=== PATIENT | male | born 1940 | race Caucasian/White ===

== ENCOUNTER 2017-04-20 00:20 | Observation (INO) ==
[2017-04-20 00:43] LABS: Basophils % 0.6 %; Eosinophils # 0.1 K/mcL (0.0-0.6); Eosinophils % 1.9 %; Hematocrit 39.3 % (37.5-50.1); Hemoglobin 13.2 g/dL (12.9-16.9); Immature Granulocytes % 0.4 % (0-4); Lymphocytes # 1.6 K/mcL (0.6-4.6); Lymphocytes % 30.4 %; Mean Corpuscular HGB Conc 33.6 g/dL (31.6-35.5); Mean Corpuscular Hemoglobin 30.6 pg (28.0-33.3); Monocytes # 0.4 K/mcL (0.0-1.3); Monocytes % 7.6 %; Platelet Count 180 K/mcL (140-400); Red Blood Count 4.32 M/mcL (4.19-5.50); Red Cell Distribution Width 13.2 % (11.5-14.5); Segmented Neutrophils % 59.1 %
[2017-04-20 00:48] LABS: INR 1.1; Prothrombin Time 12.2 Seconds (9.4-12.1)
[2017-04-20 00:51] LABS: Activated Partial Thrombo Time 30.3 Seconds (26.0-36.0)
[2017-04-20 00:54] LABS: BUN/Creatinine Ratio 28 (6-26); Blood Urea Nitrogen 25 mg/dL (8-26); Calcium 8.6 mg/dL (8.6-10.8); Carbon Dioxide 23 mEq/L (19-29); Chloride 109 mEq/L (98-109); Glucose 92 mg/dL (70-99); Osmolality,Calculated 294 (280-300); Potassium 3.9 mEq/L (3.5-4.5); Sodium 140 mEq/L (136-145); eGFR For African Americans > 60 (> 60); eGFR For Non-African Americans > 60 (> 60)
--- NOTE | 2017-04-20 01:14 | Emergency Department Note ---
Disposition Clinical Impression: Chest pain Qualifiers: Chest pain type: unspecified Qualified Code(s): R07.9 - Chest pain, unspecified Disposition: Admitted As Inpatient Condition: Good Time of Disposition: 02:14 Chest Pain HPI - General Chief Complaint: ED Chest Pain Stated Complaint: Chest Pain Time Seen by Provider: 04/20/17 00:43 Source: patient, EMS Mode of arrival: EMS Limitations: no limitations Vital Signs Reviewed: Yes Nursing Notes Reviewed: Yes - History of Present Illness HPI Narrative: 76-year-old male history of hyperlipidemia and former smoker presents to the ED via EMS for chest pain. Around 2300 he awoke from sleep left-sided chest pain radiation up the left arm left jaw and right shoulder. Reports shortness of breath denies any diaphoresis nausea or vomiting. Describes the pain as a heaviness and discomfort. Symptoms resolved after receiving 4 baby aspirin's in one subliminal nitro given at 0009. Patient reports relief of symptoms here on arrival. Denies any history of cardiac ischemic disease. He does have a pacemaker that he follows with a special education teachers at [facility]. Recent appointment 2 weeks ago for battery check. Denies any history of blood clots. Denies any recent illness, fever, cough, abdominal pain. Does report his recently had a hip replacement and he has been exerting himself more frequently. States about 2 years ago he had a heart catheterization that was reportedly normal. Chest pain workup initiated. Patient will likely need admission. Severity scale (1-10): 0 - Related Data Home Medications Medication Instructions Recorded Confirmed Aspirin 81 mg PO DAILY 01/23/16 04/20/17 Lovastatin 40 mg PO BID 01/23/16 04/20/17 Methocarbamol [Robaxin] 750 mg PO BID 01/23/16 04/20/17 Naproxen [Naprosyn] 500 mg PO BID 01/23/16 04/20/17 traMADol [Ultram] 50 mg PO BID PRN 01/23/16 04/20/17 Ascorbate Calcium [Vitamin C] 500 mg PO Q48H 07/13/16 04/20/17 Ferrous Sulfate [Iron] 325 mg PO Q48H 07/13/16 04/20/17 Multivit-Min/FA/Lycopen/Lutein 1 each PO DAILY 08/17/16 04/20/17 [Centrum Silver Men Tablet] Esomeprazole Magnesium [Nexium] 40 mg PO DAILY 04/20/17 04/20/17 Oxybutynin Chloride [Ditropan Xl] 2.5 mg PO BID 04/20/17 04/20/17 Ranitidine HCl [Acid Manager Operational] 150 mg PO BID 04/20/17 04/20/17 Allergies Allergy/AdvReac Type Severity Reaction Status Date / Time codeine Allergy Anaphylaxis Verified 04/20/17 00:39 Chest Pain PMH - Past Medical History Medical history: Reports: arthritis, GERD Surgical history: Reports: appendectomy, cholecystectomy, pacemaker/AICD Psychiatric history: Reports: no psych history - Social History Smoking Status: Former smoker Alcohol use: Reports: occasionally Drug use: Reports: none Physical Exam - General Limitations: no limitations General appearance: alert, in no apparent distress - Head Head exam: atraumatic, normocephalic, normal inspection - Eye Eye exam: Present: normal appearance, PERRL, EOMI - ENT ENT exam: normal exam, normal oropharynx, mucous membranes moist - Neck Neck exam: Present: normal inspection, full ROM, trachea midline - Chest Chest inspection: Present: normal inspection, symmetric chest wall rise, other ( PACEMAKER LEFT CHEST WALL). Absent: tenderness - Respiratory Respiratory exam: Present: normal lung sounds bilaterally. Absent: respiratory distress, wheezes, stridor - Cardiovascular Cardiovascular exam: Present: regular rate, normal rhythm, normal heart sounds - Abdominal Exam Abdominal exam: Present: soft, Non-Tender, normal bowel sounds. Absent: tenderness, distention, guarding, rebound, rigidity - Extremities Exam Extremities exam: Present: normal inspection, full ROM, normal capillary refill. Absent: tenderness, pedal edema, calf tenderness - Back Exam Back exam: Present: normal inspection, full ROM. Absent: tenderness - Neurological Exam Neurological exam: Present: alert, oriented X3 - Psychiatric Psychiatric exam: Present: normal affect, normal mood - Skin Skin exam: Present: warm, dry, intact, normal color Course - Reevaluation(s) Reevaluation #1: Review of his labs, troponin 0.01 the rest of his labs are otherwise unremarkable. Due to symptom presentation patient would benefit from admission for chest pain workup to evaluate for ACS. Patient and family are in agreement with this plan. He remains chest pain free at this time. Otherwise stable. Impression is chest pain rule out acute coronary syndrome. Time: 02:00 - Consultations Consultation #1: Spoke with on-call hospitalist oly Lazo to admit for chest pain R/O ACS. No further orders at this time Time: 02:12 Vital Signs Temperature 96.9 F L 04/20/17 00:22 Pulse Rate 77 04/20/17 00:22 Respiratory Rate 18 04/20/17 00:22 Blood Pressure 144/107 04/20/17 00:22 O2 Sat by Pulse Oximetry 93 04/20/17 00:22 Temperature 96.9 F L 04/20/17 00:22 Pulse Rate 68 04/20/17 01:23 Respiratory Rate 16 04/20/17 02:57 Blood Pressure 128/79 04/20/17 02:57 O2 Sat by Pulse Oximetry 95 04/20/17 01:23 Oxygen Delivery Oxygen Delivery Room Air Chest Pain - Medical Records Medical records reviewed: Yes I reviewed the patient's medical records. - Lab Data Lab results reviewed: Yes I reviewed the patient's lab results. Result diagrams: 04/20/17 00:38 04/20/17 00:38 Lab Results 04/20/17 04/20/17 04/20/17 Range/Units 00:38 00:38 00:38 WBC 5.1 (4.3-11.1) K/mcL RBC 4.32 (4.19-5.50) M/mcL Hgb 13.2 (12.9-16.9) g/dL Hct 39.3 (37.5-50.1) % MCV 91.0 (83.0-100.0) fL MCH 30.6 (28.0-33.3) pg MCHC 33.6 (31.6-35.5) g/dL RDW 13.2 (11.5-14.5) % Plt Count 180 (140-400) K/mcL MPV 9.0 L (9.4-12.4) fL Immature Gran % 0.4 (0-4) % Seg Neutrophils % 59.1 % Lymphocytes % 30.4 % Monocytes % 7.6 % Eosinophils % 1.9 % Basophils % 0.6 % Neutrophils # 3.0 (1.6-8.9) K/mcL Lymphocytes # 1.6 (0.6-4.6) K/mcL Monocytes # 0.4 (0.0-1.3) K/mcL Eosinophils # 0.1 (0.0-0.6) K/mcL Basophils # 0.0 (0.0-0.2) K/mcL PT 12.2 H (9.4-12.1) Seconds INR 1.1 APTT 30.3 (26.0-36.0) Seconds Sodium 140 (136-145) mEq/L Potassium 3.9 (3.5-4.5) mEq/L Chloride 109 (98-109) mEq/L Carbon Dioxide 23 (19-29) mEq/L BUN 25 (8-26) mg/dL Creatinine 0.88 (0.72-1.25) mg/dL Est GFR ( Amer) > 60 (> 60) Est GFR (Non-Af Amer) > 60 (> 60) BUN/Creatinine Ratio 28 H (6-26) Glucose 92 (70-99) mg/dL Calculated Osmolality 294 (280-300) Calcium 8.6 (8.6-10.8) mg/dL Troponin I (0-0.03) ng/mL 04/20/17 Range/Units 00:38 WBC (4.3-11.1) K/mcL RBC (4.19-5.50) M/mcL Hgb (12.9-16.9) g/dL Hct (37.5-50.1) % MCV (83.0-100.0) fL MCH (28.0-33.3) pg MCHC (31.6-35.5) g/dL RDW (11.5-14.5) % Plt Count (140-400) K/mcL MPV (9.4-12.4) fL Immature Gran % (0-4) % Seg Neutrophils % % Lymphocytes % % Monocytes % % Eosinophils % % Basophils % % Neutrophils # (1.6-8.9) K/mcL Lymphocytes # (0.6-4.6) K/mcL Monocytes # (0.0-1.3) K/mcL Eosinophils # (0.0-0.6) K/mcL Basophils # (0.0-0.2) K/mcL PT (9.4-12.1) Seconds INR APTT (26.0-36.0) Seconds Sodium (136-145) mEq/L Potassium (3.5-4.5) mEq/L Chloride (98-109) mEq/L Carbon Dioxide (19-29) mEq/L BUN (8-26) mg/dL Creatinine (0.72-1.25) mg/dL Est GFR ( Amer) (> 60) Est GFR (Non-Af Amer) (> 60) BUN/Creatinine Ratio (6-26) Glucose (70-99) mg/dL Calculated Osmolality (280-300) Calcium (8.6-10.8) mg/dL Troponin I 0.01 (0-0.03) ng/mL - Radiology Data Radiology results reviewed: Yes I reviewed the patient's radiology results. Chest X-Ray 04/20/17 00:35 IMPRESSION: No acute process. D/ / Julia Ruff MD / Julia Ruff MD Interpreting Provider: Julia Ruff MD - EKG Data EKG attestation: Yes I reviewed and interpreted this EKG. EKG results narrative: EKG performed 002 for electronic atrial paced rhythm, 80 bpm UT interval to 28, no significant ST elevations or depression. There is no old EKG for comparison. No acute ischemic changes consistent with STEMI. Heart Score - Score History: Moderately Suspicious EKG: Non Specific repolarisation Disturbance Age: Greater than 65 Risk Factors: 1-2 risk factors Troponin: Less than normal limit HEART Score Total: 5 Attestation Statement - Attestation Attestation: I, Sudheer Marrero, examined this patient and my medical decision-making was reviewed with the GASTROENTEROLOGY TECHNICIAN/PA/Advanced Practice Nurse/Resident Physician. I agree with the documented findings, disposition and treatment plan as described except to the extent set forth below. 76-year-old male presents emergency department after acute onset pain. Patient states pain woke him from sleep, was a heaviness radiating to his left jaw and left upper extremity. Pain resolved after administration of aspirin and nitroglycerin by EMS. Patient is pain-free in the emergency department. Last stress test was 2 years ago, last cardiac catheterization was greater than 5 years ago. Patient has a pacemaker in situ. Initial troponin negative. EKG showed atrial paced with a rate of 80 without evidence of STEMI. Patient comfortable with the plan for admission to hospital for further care and evaluation.
[2017-04-20] MEDS ORDERED: Acetaminophen 325 MG TABLET PO PRN (03:38)
[2017-04-20] MEDS ORDERED: Naloxone 0.4 MG/ML INJ IVP PRN (03:38)
[2017-04-20] MEDS ORDERED: Nitroglycerin 0.4 MG TAB.SUBL SL PRN (03:41)
[2017-04-20] MEDS ORDERED: traMADol 50 MG TABLET PO PRN (03:44)
[2017-04-20 04:35] LABS: Basophils % 0.6 %; Eosinophils # 0.1 K/mcL (0.0-0.6); Eosinophils % 1.8 %; Hematocrit 38.8 % (37.5-50.1); Lymphocytes # 1.5 K/mcL (0.6-4.6); Lymphocytes % 29.4 %; Mean Corpuscular HGB Conc 33.5 g/dL (31.6-35.5); Mean Corpuscular Hemoglobin 30.6 pg (28.0-33.3); Mean Corpuscular Volume 91.3 fL (83.0-100.0); Mean Platelet Volume 9.4 fL (9.4-12.4); Monocytes # 0.4 K/mcL (0.0-1.3); Monocytes % 7.6 %; Platelet Count 158 K/mcL (140-400); Red Blood Count 4.25 M/mcL (4.19-5.50); Red Cell Distribution Width 13.4 % (11.5-14.5); Segmented Neutrophils % 60.6 %
--- NOTE | 2017-04-20 04:35 | Internal Med History&Physical ---
Date of Encounter: 04/20/17 Time of Encounter: 02:00 Assessment and Plan (1) DVT prophylaxis Current visit: Yes Status: Acute heparin sc (2) Chest pain Current visit: Yes Status: Acute Pt has typical chest pain, respond to NTG, need to r/o ACS. - Continuous cardiac monitoring - Track 3 sets of troponin. - Stress test in AM if pt remains pain free and at least two sets of troponin negative. - Echo - NTG SL PRN - Cont home med ASA and statin Qualifiers: Chest pain type: precordial pain Qualified Code(s): R07.2 - Precordial pain Internal Medicine - H&P: HPI Chief complaint: Chest pain Admitted From: Home Plans for Post Hospital Care: Home History of present illness: Mr. Gonzalez is a 76 year old male with hx of S/P PPM with clear reason present to ER for chest pain. Pain started at 10-11pm and waked pt up from sleep. Chest pain located on mid chest and radiated to his left arm and neck. Pain is pressure like and throbbing. Pt has SOB, likes pale and shaking. He denies nausea, vomiting or diaphoresis. Pain lasted 20 min and resoled by itself. When EMS come, pt had another episode of chest pain on ambulance, lasted about 5 min and resolve by SL NTG. When I saw pt in ER, pt is pain free. Pt was admitted to r/o ACS. Past Med Surg Social Fam HX - Past Medical History Medical history: arthritis, GERD Psychiatric history: no psych history - Past Surgical History Surgical History: appendectomy, cholecystectomy, pacemaker/AICD - Social History Smoking Status: Former smoker Smokeless Tobacco Status: No Alcohol use: occasionally Drug use: none - Family History Mother History Unknown: Yes Internal Medicine - H&P: Meds Aspirin 81 mg PO DAILY 01/23/16 [History] Lovastatin 40 mg PO BID 01/23/16 [History] Methocarbamol [Robaxin] 750 mg PO BID 01/23/16 [History] Naproxen [Naprosyn] 500 mg PO BID 01/23/16 [History] traMADol [Ultram] 50 mg PO BID PRN 01/23/16 [History] Ascorbate Calcium [Vitamin C] 500 mg PO Q48H 07/13/16 [History] Ferrous Sulfate [Iron] 325 mg PO Q48H 07/13/16 [History] Multivit-Min/FA/Lycopen/Lutein [Centrum Silver Men Tablet] 1 each PO DAILY 08/17 [History] Esomeprazole Magnesium [Nexium] 40 mg PO DAILY 04/20/17 [History] Oxybutynin Chloride [Ditropan Xl] 2.5 mg PO BID 04/20/17 [History] Ranitidine HCl [Acid Building Repair Maintenance Supervisor] 150 mg PO BID 04/20/17 [History] 3 Allergy/AdvReac Type Severity Reaction Status Date / Time codeine Allergy Anaphylaxis Verified 04/20/17 00:39 All Systems PM: A 10-system review of systems was performed and is negative for pertinent findings except as documented above in the HPI. - Constitutional Vitals: Temp Pulse Resp BP Pulse Ox 97.9 F 61 15 130/79 94 04/20/17 04:10 04/20/17 04:10 04/20/17 04:10 04/20/17 04:10 04/20/17 04:10 General appearance: Present: A&O X 3, no acute distress, answers questions appropriately - Head Head exam: Present: atraumatic, normocephalic - Eye Eye exam: Present: PERRL, conjuntiva pink, sclera anicteric Pupils: Present: PERRL - Neck Neck exam general surgery: Present: supple, trachea midline. Absent: lymphadenopathy - Respiratory Respiratory exam: Present: CTAB. Absent: accessory muscle use, rales, rhonchi, wheezes - Cardiovascular Cardiovascular exam: Present: RRR, +S1, +S2. Absent: diastolic murmur, gallop, rubs, systolic murmur - GI/Abdominal GI/Abdominal exam: Present: normal bowel sounds, soft, no peritoneal signs. Absent: distended, tenderness - Extremities Exam Extremities exam: Present: warm, radial pulses palpable and symmetrical. Absent : calf tenderness, cyanotic, pedal edema - Neurological Exam Neurological exam: Present: CN II-XII intact, oriented X3, no focal deficits. Absent: pronater drift, facial droop, speech deficit - Skin Skin exam: Present: dry, intact Internal Med - H&P Results - Labs CBC & Chem 7: 04/20/17 00:38 04/20/17 00:38 - EKG Data -: EKG Interpreted by Myself (Pacing rhythm, no significant ST-T changes)
[2017-04-20 04:39] LABS: BUN/Creatinine Ratio 26 (6-26); Blood Urea Nitrogen 23 mg/dL (8-26); Calcium 9.1 mg/dL (8.6-10.8); Carbon Dioxide 28 mEq/L (19-29); Chloride 107 mEq/L (98-109); Glucose 99 mg/dL (70-99); Osmolality,Calculated 294 (280-300); Potassium 3.9 mEq/L (3.5-4.5); Sodium 140 mEq/L (136-145); eGFR For African Americans > 60 (> 60); eGFR For Non-African Americans > 60 (> 60)
[2017-04-20] MEDS ORDERED: Regadenoson 0.4 MG/5 ML SYRINGE IVP ONE (05:49)
[2017-04-20] MEDS: *HR* Heparin 5,000 UNIT/ML VIAL SQ SCH ×2 (09:00→17:24)
[2017-04-20] MEDS ORDERED: Famotidine 20 MG TABLET PO SCH (09:00)
[2017-04-20] MEDS ORDERED: Aspirin 81 MG TAB.CHEW PO SCH (09:00)
[2017-04-20] MEDS ORDERED: Methocarbamol 750 MG TABLET PO SCH (09:00)
[2017-04-20] MEDS ORDERED: Multivit/Ca/Min/Fe/FA 1 TAB TABLET PO SCH (09:00)
[2017-04-20 15:07] VITALS: BP 147/87
--- NOTE | 2017-04-20 17:43 | Discharge Summary ---
Date of Encounter: 04/20/17 Time of Encounter: 10:05 - Discharge Diagnosis (1) Chest pain Priority: Primary Status: Acute Comments: Patient reports sudden onset chest pain that began during the night and awakened him from sleep. Chest pain was located in the left chest radiated to left arm, and upper midline neck to the right neck and into right chest. He describes it as a pressure as well as a sharp pain. He describes it also as a heaviness. Did report shortness of breath but denies any nausea, vomiting, or diaphoresis. He was given a nitroglycerin and aspirin by EMS and by the time he reached the emergency department the pain had resolved. He states that he was unsure what made the chest pain stopped, could potentially have been the nitroglycerin. Troponin was negative 2. Patient chest x-ray negative for any acute process. Echocardiogram showed an LVEF of 55-60% with mild LV DD, normal RV structure and function, mild pulmonary regurgitation, and the device lead was visualized in right atrium and right ventricle. All wall segments showed normal motion. Patient stress test today was negative for ischemia or infarct with a gated EF of 65%. Patient denies chest pain since prior to arrival at the emergency department. Pain is not reproducible with palpation, movement, deep inspiration. Patient's lungs are clear, there is no wheezing, rhonchi, Rales, or respiratory distress. Patient is a nonsmoker. Patient is not tender to palpation in epigastric area, unclear correlation with food as patient has never had this previously. Recommend follow-up with primary care provider for continued testing, potential benefit from event monitor or Holter monitor after discharge. Recommend the patient continue his ranitidine and Prilosec. Also recommend that he takes enteric-coated aspirin daily. Perhaps do not take naproxen. Qualifiers: Chest pain type: precordial pain Qualified Code(s): R07.2 - Precordial pain (2) DVT prophylaxis Priority: Secondary Status: Acute Comments: Heparin subcutaneous daily. (3) GERD (gastroesophageal reflux disease) Priority: Secondary Status: Chronic Comments: Per patient history. Continue ranitidine as well as omeprazole. Qualifiers: Esophagitis presence: esophagitis presence not specified Qualified Code(s) : K21.9 - Gastro-esophageal reflux disease without esophagitis - Discharge Medications Home Medications: Aspirin 81 mg PO DAILY 01/23/16 [History] Lovastatin 40 mg PO BID 01/23/16 [History] Ascorbate Calcium [Vitamin C] 500 mg PO Q48H 07/13/16 [History] Ferrous Sulfate [Iron] 325 mg PO Q48H 07/13/16 [History] Multivit-Min/FA/Lycopen/Lutein [Centrum Silver Men Tablet] 1 each PO DAILY 08/17 [History] Naproxen [Naprosyn] 500 mg PO BID tablet 04/20/17 [Rx] Omeprazole [PriLOSEC] 40 mg PO DAILY 04/20/17 [History] Oxybutynin Chloride [Ditropan Xl] 2.5 mg PO BID 04/20/17 [History] Ranitidine HCl [Acid Crib Tender] 150 mg PO BID 04/20/17 [History] Tamsulosin [Flomax] 0.4 mg PO DAILY 04/20/17 [History] Allergies/Adverse Reactions: 3 Allergy/AdvReac Type Severity Reaction Status Date / Time codeine Allergy Anaphylaxis Verified 04/20/17 00:39 Procedures/tests Complete & Pending: Procedures Performed prior 72 hours Category Date Time Status NM jones perf SPECT multi [NM] Routine Exams 04/20/17 03:43 Taken EV echocardiogram Routine Y 04/20/17 03:44 Completed SP pharm nuclear stress Routine Y 04/20/17 07:20 Completed Date of admission: 04/20/17 02:28 Primary care physician: Jonathan Dsouza DO Discharging clinician: Chiquis Thorpe Anticipated date of discharge: 04/20/17 - Patient Status Disposition: Home, Self-Care Condition: Good Functional capacity at discharge: independent ambulation Overall status at discharge: patient is back to baseline - Discharge Instructions Follow Up With: Jonathan Dsouza DO [Primary Care Provider] - Additional Instructions: Please follow up with her primary care provider in the next 7-10 days for a recheck. Return to normal activities and diet as tolerated. Resume your normal home medications. Return to the emergency room as needed for any other problems or concerns, or if your symptoms return or worsen. - Diet and Activity Activity: increase activity as tolerated Diet: advance to your usual diet Interval History: Please see assessment and plan for hospital course. Hospital course: Mr. Gonzalez is a 76 year old male - Time Spent with Patient Total time spent providing and/or coordinating discharge services: - Constitutional Vitals: Temp Pulse Resp BP Pulse Ox 97.5 F L 66 18 147/87 94 04/20/17 15:06 04/20/17 15:06 04/20/17 15:06 04/20/17 15:06 04/20/17 15:06 General appearance: Present: cooperative, A&O X 3, pleasant, no acute distress, answers questions appropriately - Head Head exam: Present: atraumatic, normal inspection, normocephalic - Eye Eye exam: Present: normal appearance, conjuntiva pink, sclera anicteric - Neck Neck exam general surgery: Present: normal inspection, supple, trachea midline. Absent: lymphadenopathy, tenderness - Respiratory Respiratory exam: Present: CTAB. Absent: accessory muscle use, chest wall tenderness, decreased breath sounds, rales, respiratory distress, rhonchi, wheezes - Cardiovascular Cardiovascular exam: Present: RRR, +S1, +S2. Absent: diastolic murmur, gallop, rubs, systolic murmur - GI/Abdominal GI/Abdominal exam: Present: normal bowel sounds, soft. Absent: distended, hernia, tenderness - Extremities Exam Extremities exam: Present: normal capillary refill, normal inspection, warm, radial pulses palpable and symmetrical. Absent: calf tenderness, cyanotic, pedal edema, tenderness - Neurological Exam Neurological exam: Present: alert, oriented X3, no focal deficits. Absent: facial droop, speech deficit - Skin Skin exam: Present: dry, intact, normal color, warm. Absent: rash
--- NOTE | 2017-04-20 20:38 | Electrocardiograph Report ---
[address] [address] Test Date: 2017-04-20 Pat Name: Barrett Gonzalez Department: 104 Room: 3B54 Gender: M Carpenter Rough: KIKE : 1940 Requested By: Sudheer Marrero Order Number: [id number] Reading MD: Evan Green MD Measurements Intervals [place] Rate: 80 P: -16 IN: 228 QRS: -7 QRSD: 90 T: 20 QT: 341 QTc: 377 Interpretive Statements ELECTRONIC ATRIAL PACEMAKER Electronically Signed On 04-20-2017 20:37:07 EST by Evan Green MD
== END 2017-04-20 18:36 | disposition home or self-care (01) ==
LOC: EMEROO 00:20 → 3BNU 00:20
PROVIDERS: ADMIT Internal Medicine; ATTEND Registered Nurse

== ENCOUNTER 2019-05-19 14:39 | Observation (INO) ==
[2019-05-19] MEDS ORDERED: Aspirin 81 MG TAB.CHEW PO STA (14:47)
[2019-05-19] MEDS: Nitroglycerin 0.4 MG TAB.SUBL SL PRN ×2 (15:18→15:25)
[2019-05-19 15:30] LABS: Hematocrit 39.6 % (37.5-50.1); Hemoglobin 13.8 g/dL (12.9-16.9); Mean Corpuscular HGB Conc 34.8 g/dL (31.6-35.5); Mean Corpuscular Hemoglobin 31.7 pg (28.0-33.3); Mean Platelet Volume 9.3 fL (9.4-12.4); Platelet Count 191 K/mcL (140-400); Red Blood Count 4.35 M/mcL (4.19-5.50); Red Cell Distribution Width 13.2 % (11.5-14.5); White Blood Count 4.5 K/mcL (4.3-11.1)
[2019-05-19 15:53] LABS: BUN/Creatinine Ratio 22 (6-26); Blood Urea Nitrogen 25 mg/dL (8-23); Calcium 9.2 mg/dL (8.6-10.3); Carbon Dioxide 26 mEq/L (23-29); Chloride 107 mEq/L (98-107); Glucose 102 mg/dL (70-105); Osmolality,Calculated 295 (280-300); Potassium 4.1 mEq/L (3.5-5.1); Sodium 140 mEq/L (136-145); Troponin I < 0.03 ng/mL (< 0.04); eGFR For African Americans > 60 (> 60); eGFR For Non-African Americans > 60 (> 60)
[2019-05-19] MEDS ORDERED: Naloxone 0.4 MG/ML INJ IVP PRN (17:13)
[2019-05-19] MEDS ORDERED: Ondansetron ODT 4 MG TAB.RAPDIS SL PRN (17:13)
[2019-05-19] MEDS ORDERED: Acetaminophen 325 MG TABLET PO PRN (17:13)
[2019-05-20 03:41] LABS: Basophils % 0.6 %; Eosinophils # 0.2 K/mcL (0.0-0.6); Hematocrit 41.4 % (37.5-50.1); Hemoglobin 13.9 g/dL (12.9-16.9); Immature Granulocytes % 0.4 % (0-4); Lymphocytes # 1.4 K/mcL (0.6-4.6); Lymphocytes % 28.8 %; Mean Corpuscular HGB Conc 33.6 g/dL (31.6-35.5); Mean Corpuscular Hemoglobin 30.5 pg (28.0-33.3); Mean Platelet Volume 9.6 fL (9.4-12.4); Monocytes # 0.4 K/mcL (0.0-1.3); Monocytes % 8.1 %; Neutrophils # 2.9 K/mcL (1.6-8.9); Platelet Count 199 K/mcL (140-400); Red Blood Count 4.55 M/mcL (4.19-5.50); Red Cell Distribution Width 13.2 % (11.5-14.5); Segmented Neutrophils % 59.1 %; White Blood Count 4.9 K/mcL (4.3-11.1)
[2019-05-20 03:48] LABS: BUN/Creatinine Ratio 22 (6-26); Blood Urea Nitrogen 25 mg/dL (8-23); Calcium 9.2 mg/dL (8.6-10.3); Carbon Dioxide 27 mEq/L (23-29); Chloride 107 mEq/L (98-107); Glucose 99 mg/dL (70-105); Osmolality,Calculated 296 (280-300); Potassium 4.1 mEq/L (3.5-5.1); Sodium 141 mEq/L (136-145); eGFR For African Americans > 60 (> 60); eGFR For Non-African Americans > 60 (> 60)
[2019-05-20] MEDS ORDERED: Regadenoson 0.4 MG/5 ML SYRINGE IVP ONE (05:58)
[2019-05-20 11:31] VITALS: BP 129/74
[2019-05-20] MEDS ORDERED: Methocarbamol 750 MG TABLET PO PRN (13:00)
[2019-05-20] MEDS ORDERED: Ascorbic Acid 500 MG TABLET PO SCH (13:00)
[2019-05-21] MEDS ORDERED: Aspirin 81 MG TAB.CHEW PO SCH (09:00)
[2019-05-21] MEDS ORDERED: NON-FORMULARY MEDICATION 1 EACH EACH (Calcium Carbonate/Vitamin D3 [Calcium 500 Mg Chewabl PO SCH (09:00)
[2019-05-21] MEDS ORDERED: Cholecalciferol (D-3) 1,000 UNIT (25MCG) TABLET PO SCH (09:00)
== END 2019-05-20 14:35 | disposition home or self-care (01) ==
LOC: EMEROOARM 14:39 → 3BNU 14:39 → SUATTDRO 17:06 → 3BNU 18:32
PROVIDERS: ADMIT Internal Medicine; ATTEND Student in an Organized Health Care Education/Training Program